=== PATIENT | male | born 1985 | race Caucasian/White ===

== ENCOUNTER 2017-02-25 06:01 | Emergency (ER) | payer OTHER ==
--- NOTE | 2017-02-26 04:20 | ER ---
ADMIT: 02/25/2017 RM/LOC: ER [facility] MR#: [id number] [id number] [place], [place] [id number] DANIELDANIEL [address] [address] Emergency Room Report SEX: M AGE: 32 : 1985 DATE: 02/25/2017 CHIEF COMPLAINT: Left arm tingling and weakness and both legs gave out. HISTORY OF PRESENT ILLNESS: The patient is a 32-year-old male, who is otherwise healthy, states he went to bed feeling fine last night. He woke up around 5 initially and had no symptoms and got out of bed roughly 15 minutes later. Shortly after getting out of bed, he felt like his left leg gave out and shortly after that his right leg gave out. About the time his right leg gave out, he states he had tingling in his left arm and he felt like he could not move his left arm or hand. He came in to be evaluated and he states both of his legs are now essentially back to normal, and he still has some tingling and weakness in his left arm, but has improved. He otherwise denies any recent illness, and he has not had any fevers or chills. Denies any pain at this time. He has no headache, no vision changes, no history of migraines. He does take trazodone, which has fairly recently been prescribed and states as far as he knows, he slept normally last night. He denies any alcohol intake and remembers moving around some in bed last night, so was unlikely that he laid in 1 position for hours on in. PAST MEDICAL HISTORY: Negative. MEDICATIONS: Trazodone. ALLERGIES: NONE. SOCIAL HISTORY: Denies smoking or drug use. Does occasionally use alcohol. PHYSICAL EXAMINATION: GENERAL: The patient is alert, in no distress. HEENT: Head is atraumatic. Pupils are equally round and reactive to light. Extraocular muscles are intact. NECK: Supple. No pain with range of motion of his neck. HEART: Regular rate and rhythm. LUNGS: Clear to auscultation. ABDOMEN: Soft. SKIN: Warm and dry. EXTREMITIES: He has good pulses in all 4 extremities. Motor exam of the patient's bilateral lower extremities reveals he has 5/5 strength in both lower extremities. Good sensation. Reflexes are equal in patellar tendon bilaterally. Examination of right upper extremity reveals normal sensory and motor exam. Examination of left upper extremity shows that the patient seems to have some weakness in his left hand and forearm, but at times when he is distracted, he seems to be moving it when he does not notice it. He has equal pulses in bilateral upper extremities. ADMIT: 02/25/2017 RM/LOC: ER [facility] MR#: [id number] [address] [place] [id number] DANIEL SANCHEZ [address] [place] [address] Emergency Room Report SEX: M AGE: 32 : 1985 MEDICAL DECISION MAKING: Based on the patient's complaints, his symptoms do not fit a condition that I am aware of. It seems that the patient is able to move the arm, at least somewhat when he is distracted and not thinking about it. He also states that his symptoms have been getting better since he has been up. I deferred doing any sort of imaging at this time as his symptoms do not fit a constellation that would be consistent with any stroke-like problem. At this point, I believe the patient is safe to be discharged home and he is sent home to return to the ER for any concerning symptoms, otherwise to follow up with Neisha Mcallister as needed. DIAGNOSIS: Left arm tingling. Bernardino Gonzaelz MD/ adwoa JOB #: [id number] CC: Bernardino Gonzalez MD, Attending Physician Neisha Mcallister PA-C, Family Physician
== END 2017-02-25 06:30 | disposition home or self-care (01) ==
LOC: EDBD 06:01 → ER 06:01
DX: R20.2 Paresthesia of skin (principal); Z79.899 Other long term (current) drug therapy